=== PATIENT | female | born 1965 ===

== ENCOUNTER 2018-11-27 14:40 | Inpatient (IN) | payer OTHER ==
[~2018-11-27] VITALS: Ht 157.5 cm; Wt 68.0 kg
== END 2018-12-04 11:24 | disposition home or self-care (01) | DRG 761 ==
LOC: O/R 12-03 05:22 → SURH 12-03 07:00 → OB/GYN 12-03 13:00 → SURH 12-03 14:39 → OB/GYN 12-04 11:24
PROVIDERS: ADMIT Obstetrics & Gynecology
PROC: 0JQC3ZZ Repair Pelvic Region Subcutaneous Tissue and Fascia, Percutaneous Approach (ICD-10-PCS; principal; 2018-12-03 07:00)
DX: N81.6 Rectocele (principal); N81.11 Cystocele, midline

== ENCOUNTER 2023-04-10 05:30 | Day surgery (SDC) | payer OTHER ==
[~2023-04-10] VITALS: Ht 157.5 cm; Wt 68.0 kg
== END 2023-04-10 11:20 | disposition home or self-care (01) ==
LOC: CIR.AMB 05:30 → O/R 05:30 → CIR.AMB 07:00
PROVIDERS: ATTEND Obstetrics & Gynecology
DX: N95.0 Postmenopausal bleeding (principal); N84.0 Polyp of corpus uteri; Z20.822 Contact with and (suspected) exposure to COVID-19